=== PATIENT | female | born 1985 | race Asian ===

== ENCOUNTER 2020-12-04 08:58 | Outpatient (CLI) | payer OTHER | END 2020-12-04 23:59 | LOC: LAB.N 08:58 | PROVIDERS: ATTEND Family Medicine | DX: R07.0 Pain in throat (principal); Z20.822 Contact with and (suspected) exposure to COVID-19 | CPT/HCPCS: 87070 ==

== ENCOUNTER 2021-03-29 08:00 | Outpatient (CLI) | payer OTHER | END 2021-03-29 23:59 | LOC: LAB.N 08:00 | PROVIDERS: ATTEND Nurse Practitioner | DX: R05.3 Chronic cough (principal); Z20.822 Contact with and (suspected) exposure to COVID-19 ==

== ENCOUNTER 2022-06-25 10:56 | Outpatient (CLI) | payer OTHER ==
--- NOTE | 2022-06-25 11:45 | Sleep Patient Instructions ---
Sleep Center Visit Summary - Patient Visit Information Reason for Visit: Initial consult for evaluation of sleep disordered breathing and other sleep issues. - Patient Instructions Instructions Attached: Sleep Clinic Visit, Sleep Study, Sleep Study Home M onitor Additional Instructions: You will be completing a sleep study, either an in-lab polysomnography (PSG) or home sleep study (HST). You will follow-up in the sleep care office after the sleep study is completed to hear the results and talk about therapy, if needed. You will be called by our office staff to schedule this appointment, but you may contact us with any questions. - Clinic Information Contact: [facility] [address] [place] [id number] [email or web address] T: [phone]
--- NOTE | 2022-06-25 11:53 | SLEEP CARE CONSULTATION ---
Information from patient questionnaire entered by Nicole Cox. I have reviewed and concur with the information entered by Nicole Cox. This document represents the service I personally performed and the decisions made by me, Katiuska Sorto ARNP. History of Present Illness Service Date and Time: 06/25/2022 1056 Reason for Visit: New patient, Previously diagnosed sleep apnea Chief Complaint: reports: Unrefreshed sleep, Snoring, Excessive daytime sleepiness, Frequent awakenings at night, Other (UPDATE SUPPLIES) Date of Onset: 4YRS Usual bedtime: 10 PM Time it takes to fall asleep: 20MIN Snores at night: Yes Observed to quit breathing while asleep: Yes Sleeps alone due to snoring: No Number of times waking at night: 2-3 Reasons for waking at night: reports: Snoring, Gasping for air, Bathroom, Other (NOISE; thirsty) Toss, Turn, or Twitch while sleeping: Yes Recalls having dreams: Yes Usually gets out of bed at: 530AM; weekends [id number] Feels refreshed in the morning: No Morning headache: Yes (5 times a week; ONE HR) Sleepy or fatigued during the day: Yes Ever fallen asleep while driving: No Takes day naps: Yes (3-4 times a week; 30-60 mins) Dreams during day naps: Yes Prior sleep studies: Yes (12/2019 [facility]) Additional HPI information: I had the pleasure of seeing CHRISTIAN STERLING today regarding the status of her sleep disorder. Her current complaints are excessive daytimes sleepiness, frequent night awakenings, snoring and unrefreshed sleep. She also needs update of supplies. She states she had a sleep study done in [facility] in December of 2019. She states she only used the CPAP for about a year before it broke and she only used it about 2 times a week then, because the mask was uncomfortable. She states her CPAP was broken(she lost a part to it) about 2 years ago and she has not been using a CPAP since that time. 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 She felt she did get better rest when using her CPAP. - Parasomnia Symptoms Ever been unable to move upon waking from sleep: No Walks in sleep: No Talks in sleep: Yes Ever acted out dreams in sleep: No Ever felt weak in the knees when startled or emotional: No Bothered by creepy, crawly, restless sensations in legs: No Problems with memory or concentration: Yes (concentration) Subjective Initial [place] Sleepiness Scale score: 15 (06/25/22) Past Medical History Past Medical History: reports: Other (sleep apnea) Social History The patient's occupation is a [employer]. Patient is Single and lives in . Have you smoked in the past 12 months: No Alcohol use: No Caffeine use: Yes Caffeine amount and frequency: 2 cups coffee daily on weekdays; 1 coffee and one soda on weekends Family History Family history of sleep disordered breathing: Yes Family Hx Sleep Apnea: Father: Snoring, Sleep apnea - Untreated Allergies and Home Medications Known drug allergies: No Drug allergies reviewed: Yes Home medication list reviewed: Yes (see updated list in EMR) Review of Systems Weight gain over past 5 years: 16 Cardiovascular: denies: high blood pressure Gastrointestinal: denies: heartburn Neurological: denies: headaches Psychiatric: denies: anxiety, depression Ear/Nose/Throat: reports: wisdom teeth removed. denies: tonsillectomy Endocrine: denies: thyroid disease Physical Exam Vital signs obtained and entered by: NICOLE Dennis MA Blood Pressure: 120/68 (LEFT ARM) Cuff size: regular Heart Rate: 70 O2 Saturation: 98 Height: 5 ft 1 in Weight: 143 lb 6.4 oz Body Mass Index: 27.1 BMI Classification: Overweight Neck circumference: 15 Mouth and throat: narrow oropharynx Soft palate: long Uvula visualization: 0% Mallampati Class IV Tongue: enlarged in size with teeth larkin on lateral edges Heart: regular rate and rhythm Lungs: clear bilaterally Impression and Plan 1. Suspected Obstructive Sleep Apnea-Hypopnea Syndrome, as previously diagnosed and as suggested by a history of loud and irregular snoring, observed cessation of breath while asleep, gasping or choking in sleep, morning headache, frequent awakening during the night, unrefreshed sleep, cognitive impairment, and excessive daytime sleepiness. I recommend proceeding to polysomnography to confirm the diagnosis and to assess severity. If the patient has significant sleep disordered breathing, a manual CPAP titration study will also be performed to find the optimal treatment pressure. I informed the patient of what the sleep studies involve and after some discussion, obtained agreement to proceed. The pathophysiology of obstructive sleep apnea-hypopnea syndrome was discussed with the patient and health risks of cardiovascular and cerebrovascular disease if not treated. Risks of drowsy driving discussed in detail and patient advised to avoid long distance driving and to puller through at the first sign of drowsiness. Patient agreed to plan. * Schedule polysomnography +- manual CPAP titration study and return in 1-2 weeks after the study to discuss result and initiate therapy. * Avoid long distance driving or driving when feeling sleepy. * Avoid alcohol, sedative and muscle relaxant around bedtime. * Attempt to lose weight. * Review instructions provided by trained office staff on how to prepare for the sleep study. * Return for follow-up after sleep study completed. Counseling Topics: Weight loss health impact Visit Type: In Office Time Spent with Patient (minutes): 32 Provider Statement: I spent 100% of the Face to Face Visit with the patient with greater than 50% spent counseling the patient and coordination of care.
[2022-06-25 12:38] VITALS: BP 120/68
== END 2022-06-25 10:57 | disposition home or self-care (01) ==
LOC: SC 10:56
PROVIDERS: ATTEND Nurse Practitioner Family
DX: G47.33 Obstructive sleep apnea (adult) (pediatric) (principal)
CPT/HCPCS: 99203; 99212

== ENCOUNTER 2022-07-14 19:40 | Outpatient (CLI) | payer OTHER | END 2022-07-14 19:41 | disposition home or self-care (01) | LOC: SC 19:40 | PROVIDERS: ATTEND Nurse Practitioner Family | DX: G47.33 Obstructive sleep apnea (adult) (pediatric) (principal) | CPT/HCPCS: 95810 ==

== ENCOUNTER 2022-08-04 10:32 | Outpatient (CLI) | payer OTHER ==
--- NOTE | 2022-08-04 11:11 | SLEEP CARE CONSULTATION ---
Information from patient questionnaire entered by Arielle Cox. I have reviewed and concur with the information entered by Arielle Cox. This document represents the service I personally performed and the decisions made by me, Katiuska Sorto ARNP. History of Present Illness Service Date and Time: 08/04/2022 1032 Initial [place] Sleepiness Scale score: 15 (06/25/22) Current [place] Sleepiness Scale score: 12 Additional HPI information: CHRISTIAN STERLING returns for follow up and results of the recently performed polysomnography. She was found to have moderate obstructive sleep apnea with an average AHI of 27.9 and marie oxygen saturation of 76%. I explained the pathophysiology behind obstructive sleep apnea. We then spent quite a bit of time discussing different treatment options. For mild obstructive sleep apnea, surgery and oral appliance are alternatives to nasal CPAP therapy but in moderate or severe cases, nasal CPAP is the most effective and reliable treatment. I reviewed the impact of weight changes on sleep apnea and strongly recommended losing weight. After some discussion, the patient opted to go with the nasal CPAP therapy. Nasal autoCPAP set at 4-15 cmH20 will be ordered with rationale explained. A manual titration study will be ordered if unable to find optimal pressure with office adjustments. I explained how CPAP machine works and what to expect when using the machine. Using CPAP every night in order to get used to it was emphasized. Patient advised to put CPAP mask on before getting into bed so as not to fall asleep without CPAP. To assist acclimation to CPAP use, it could also be used for a short time during day while reading or watching TV. The patient was instructed to call the CPAP supplier to discuss any mechanical problem that may occur. If the mask given is uncomfortable or is difficult to keep on through the night even with adjustment, contact the CPAP supplier as many will replace with another mask style if notified before 30 days. If snoring or perceives is not getting enough air or too much air from the machine, notify this office. Patient does not drink alcohol. Patient was cautioned about risks of drowsy driving until sleepiness symptoms resolve. Patient denies drowsy driving. Sleep Study - Results Type of Sleep Study: Polysomnography (COMPLETED 07/14/22) Prior sleep studies: Yes (12/2019 [facility]) Polysomnography/Home Sleep Study results: IMPRESSION: The quality of the study is good. The patient had normal sleep efficiency. The sleep architecture was abnormal for sleep fragmentation and reduced amount of time spent in slow wave sleep (N3). Respiratory monitoring showed moderate obstructive sleep apnea-hypopnea (AHI = 27.9) associated with frequent arousals, oxyhemoglobin desaturation and moderate hypoxia (marie oxygen saturation of 76%) . The respiratory events occurred mainly during REM sleep (supine AHI = 30.3; non-supine = 24.28). Snore was very loud in intensity. There was no significant periodic leg movement of sleep. Cardiac rhythm was normal sinus rhythm without significant arrhythmia. No abnormal behavior (parasomnia) observed during the night. Allergies and Home Medications Known drug allergies: No Drug allergies reviewed: Yes Home medication list reviewed: Yes (Terbinafine Hydrochloride, Fluticasone Propionate) Allergy and home medication list: Allergies No Known Drug Allergies Allergy (Verified 08/03/22 21:47) Review of Systems Review of systems same as previous: Yes (no changes) Physical Exam Vital signs obtained and entered by: Katiuska Funes NP Blood Pressure: 146/80 Cuff size: wrist (right) Heart Rate: 89 O2 Saturation: 95 Height: 5 ft 1 in Weight: 151 lb 9.6 oz Body Mass Index: 28.6 BMI Classification: Overweight Impression and Plan 1. Obstructive Sleep Apnea-Hypopnea Syndrome, moderate, with lowest oxygen saturation of 76%. Obviously this is the cause of the patients symptoms of unrefreshed sleep, and excessive daytime sleepiness. As mentioned above, the patient will be started on nasal autoCPAP therapy with pressure set at 4-15 cmH2 O. Compliance guidelines also reviewed. A copy of compliance guidelines will be given for reference at check out. Because the apnea is more severe supine, I instructed to avoid sleeping supine using pillow positioning until able to start CPAP use. 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 A prescription for the Oral Appliance will be given to her with list of dentists. We will follow up with her once she has the oral appliance and order a sleep study with it in place to check effectiveness. 2. Hypoxemia, moderate, with a marie oxygen saturation of 76% and 16.2 minutes spent under 90%. Her baseline oxygen saturation was normal with an average oxygen saturation of 94%. * Nasal auto CPAP therapy, pressure at 4-15 cm H2O. * Oral Appliance, too * Attempt to lose weight. * Avoid alcohol consumption near bedtime. * Avoid supine sleep until using CPAP. * The patient is again cautioned about driving until sleepiness completely resolves. * Return one month after CPAP obtained. I will assess response to therapy and compliance at that time. Counseling Topics: Sleeping position, Weight loss health impact Visit Type: In Office Time Spent with Patient (minutes): 20 Provider Statement: I spent 100% of the Face to Face Visit with the patient with greater than 50% spent counseling the patient and coordination of care.
[2022-08-04 11:12] VITALS: BP 146/80
== END 2022-08-04 10:33 | disposition home or self-care (01) ==
LOC: SC 10:32
PROVIDERS: ATTEND Nurse Practitioner Family
DX: G47.33 Obstructive sleep apnea (adult) (pediatric) (principal); E66.3 Overweight; Z68.28 Body mass index [BMI] 28.0-28.9, adult
CPT/HCPCS: 99212; 99213

== ENCOUNTER 2022-10-26 09:41 | Outpatient (CLI) | payer OTHER ==
--- NOTE | 2022-10-26 09:24 | Sleep Patient Instructions ---
Sleep Center Visit Summary - Patient Visit Information Reason for Visit: First Compliance with PAP therapy - Patient Instructions Additional Instructions: You were here for follow up of CPAP therapy. You will be continued on CPAP therapy with pressure at 10-12 cmH2O. Please let us know if the pressure change is uncomfortable and we can make further adjustments of the pressure. I will order a follow up sleep study to check effectiveness of oral appliance and someone will call to set this up with you. You should follow up with sleep care after sleep study. You may contact us sooner for any questions or concerns. - Clinic Information Contact: [facility] [address] [place] [address] [email or web address] T: [phone]
--- NOTE | 2022-10-26 09:30 | SLEEP CARE CONSULTATION ---
Information from patient questionnaire entered by Nicole Cox. I have reviewed and concur with the information entered by Nicole Cox. This document represents the service I personally performed and the decisions made by me, Katiuska Sorto ARNP. History of Present Illness Service Date and Time: 10/26/2022 0900 Previous diagnosis: Moderate, Obstructive Sleep Apnea-Hypopnea Syndrome AHI: 27.9 (06/2022) Reason for follow up: first compliance (SET UP 09/06/22) Equipment type: CPAP (ResMed Airsense 11, s/u 08/2022) Equipment obtained from: Other ([facility], got initial supplies) Mask style: Nasal pillows Mask brand: Resmed (AirFit P10, medium cushion) Backup mask available: No (will keep old mask when replaced) Last cushion change: 1 month Prior sleep studies: Yes (12/2019 [facility]) Type of Sleep Study: Polysomnography (COMPLETED 07/14/22) Sleep Study - Results Type of Sleep Study: Polysomnography (COMPLETED 07/14/22) Prior sleep studies: Yes (12/2019 [facility]) CPAP Compliance Data - Data Reviewed with Patient Average duration of nightly device use: 6 HRS 13 MIN Compliance rate %: 83 (09/22/22-10/21/22; days used) Current pressure setting (cmH2O): 4-15 (median 8.4, avg 11.3, max 12.7) Average residual AHI: 1.5 Central apnea: 0.4 Obstructive apnea: 0.8 Average large leak: 0 L/min Subjective Missed days of use due to: reports: illness (nasal allergies - too much congestion), travel (not home) Patient concerns: denies: aerophagia, mask discomfort, air blowing in eyes, mask leak noise, condensation in mask/hose, nasal congestion, dry mouth, nose, throat, epistaxis Observed to snore while using device: No Current pressure setting perceived as: comfortable On therapy, patient: reports: sleeping better, awakening more refreshed, being more awake and alert during the day, more rested overall, other (reduced nightmares and night wakeups). denies: drowsiness while driving Initial [place] Sleepiness Scale score: 15 (06/25/22) Current [place] Sleepiness Scale score: 6 (10/26/22) Allergies and Home Medications Known drug allergies: No Drug allergies reviewed: Yes Home medication list reviewed: Yes (no changes) Allergy and home medication list: Allergies No Known Drug Allergies Allergy (Verified 10/22/22 09:21) Review of Systems Review of systems same as previous: Yes (no changes) Physical Exam Vital signs obtained and entered by: NICOLE Dennis MA Blood Pressure: 118/64 (LEFT ARM) Cuff size: regular Heart Rate: 678 O2 Saturation: 97 Height: 5 ft 1 in Weight: 149 lb 9.6 oz Weight change since last visit: 2 lb loss Body Mass Index: 28.3 BMI Classification: Overweight Impression and Plan 1. Obstructive Sleep Apnea-Hypopnea Syndrome, moderate, with good treatment compliance and good apnea control. On CPAP therapy, the patient has better sleep quality and is more rested overall. The patients pressure will be changed to autoCPAP 10-12 cmH20 to reflect pressure being used. Patient advised to contact me if pressure change is uncomfortable so that it can be adjusted. Goals for apnea control discussed. Patient's apnea severity and rationale for treatment to reduce apnea, improve sleep quality and reduce cardiovascular and cerebrovascular events was reviewed. [place]ah has an oral appliance for deployments that she received about a week ago. I will order followup sleep study to check its effectiveness. 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 We will try to schedule the sleep study and get it done before she leaves. I will then have her schedule a follow up when she returns from deployment. 2. Overweight, unspecified. Currently patients BMI is 28.3. Obesity increases the risk of apnea, CPAP pressure requirements and overall health risks especially cardiovascular and diabetes. Thus patient is advised to lose weight. * HST with oral appliance in place to check efficacy will be ordered * Change auto CPAP pressure to 10-12 cmH2O * Notify me if snoring with mask or feeling that the pressure is too much or too little * Attempt to lose weight * Call this office if any problems using CPAP * Return for follow up after sleep study with oral appliance, or sooner if concerns arise Counseling Topics: Spare mask, Weight loss health impact Visit Type: In Office Time Spent with Patient (minutes): 24 Provider Statement: I spent 100% of the Face to Face Visit with the patient with greater than 50% spent counseling the patient and coordination of care.
[2022-10-26 09:39] VITALS: BP 118/64; O2SAT 97
== END 2022-10-26 09:42 | disposition home or self-care (01) ==
LOC: SC 09:41
PROVIDERS: ATTEND Nurse Practitioner Family
DX: G47.33 Obstructive sleep apnea (adult) (pediatric) (principal)
CPT/HCPCS: 99212; 99213

== ENCOUNTER 2022-11-25 14:02 | Outpatient (CLI) | payer OTHER | END 2022-11-25 14:03 | disposition home or self-care (01) | LOC: SC 14:02 | PROVIDERS: ATTEND Nurse Practitioner Family | DX: G47.33 Obstructive sleep apnea (adult) (pediatric) (principal); R09.02 Hypoxemia | CPT/HCPCS: 95806 ==